=== PATIENT | female | born 1975 | race African-American/Black ===

== ENCOUNTER 2016-11-07 09:44 | Emergency (ER) | payer BC, MEDICAID ==
[~2016-11-07] VITALS: Ht 165.1 cm; Wt 79.4 kg
[2016-11-07 10:00] VITALS: BP 173/105
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
[2016-11-07] MEDS ORDERED: IBUPROFEN600 MG ORAL (10:37)
[2016-11-07] MEDS ORDERED: CORTISPORIN EAR10 ML OTIC (10:37)
[2016-11-07] MEDS ORDERED: PREDNISONE20 MG ORAL (10:37)
[2016-11-07] MEDS ORDERED: AMLODIPINE BESYL5 MG ORAL (11:05)
[2016-11-07 11:15] VITALS: BP 163/100
== END 2016-11-07 11:29 | disposition home or self-care (01) ==
LOC: EMR 10:10
DX: H60.91 Unspecified otitis externa, right ear (principal); T65.891A Toxic effect of other specified substances, accidental (unintentional), initial encounter; T20.511A Corrosion of first degree of right ear [any part, except ear drum], initial encounter; Y92.89 Other specified places as the place of occurrence of the external cause; I10 Essential (primary) hypertension; Z88.2 Allergy status to sulfonamides
CPT/HCPCS: 99284